=== PATIENT | female | born 1980 | race Caucasian/White ===

== ENCOUNTER 2020-02-21 08:46 | Outpatient (REF) | payer MEDICAID, SELFPAY ==
--- NOTE | 2020-02-21 09:00 | MR_ITS ---
EXAMINATION: MR BREAST WITHOUT AND WITH CONTRAST, BILATERAL CLINICAL INFORMATION: Family history of breast cancer. COMPARISON: Bilateral breast MRI 08/08/2014, bilateral screening mammogram 12/24/2019 TECHNIQUE: Imaging was performed with a dedicated breast coil. Prior to the administration of contrast, bilateral axial T1 and bilateral axial T2 weighted sequences were obtained. After the uneventful administration of?7.5 mL of Gadavist, dynamic contrast-enhanced VIBRANT series through the breasts in the axial plane were performed. Subtracted images were performed and reviewed. A delayed sagittal sequence through both breasts was acquired. Additionally, CAD post-processing, including maximum intensity projections, 3-D reconstructions and kinetic analysis, were performed an independent workstation and reviewed by the interpreting radiologist is a portion of this exam. FINDINGS: The patient's fibroglandular tissue demonstrates moderate background enhancement. LEFT BREAST: Moderate background enhancement and numerous enhancing foci are present. There are 2 new adjacent, enhancing nodules in the upper outer quadrant, 3 cm from the nipple (subtracted sequence images 57 and 59 of 124), each measuring 0.4-0.5 cm and demonstrating indeterminate enhancement kinetics. An additional indistinct, enhancing focus with indeterminate kinetics is present in the 11 o'clock position, 4 cm from the nipple, measuring 0.4 cm in size (subtracted sequence image 46 of 124). RIGHT BREAST: There is moderate background enhancement with multiple scattered enhancing foci. In the 11 o'clock position, anterior depth, 2 cm from the nipple, there is a round, indistinct enhancing nodule with indeterminate enhancement kinetics (type II enhancement curve) measuring 0.4 cm (subtracted sequence image 51 of 124), this is a new finding and is indeterminate in appearance. There is a stable presumed intramammary lymph node in the 9 o'clock position, 5 cm from the nipple, measuring 0.6 cm in size (subtracted sequence image 62 of 124). There is no suspicious internal mammary chain or axillary adenopathy. Limited views of the chest and abdomen are unremarkable. IMPRESSION: Bilateral indeterminate enhancing foci, as above. There is a single enhancing nodule on the right and 3 enhancing nodules on the left which require further characterization with core biopsy. ASSESSMENT: LEFT BREAST: BI-RADS 4, suspicious. RIGHT BREAST: BI-RADS 4, suspicious. RECOMMENDATIONS: Bilateral MR-guided core biopsy is recommended, it would be reasonable to attempt to sample all areas detailed above at a single appointment, left breast, upper outer quadrant 2 nodules and 11 o'clock position 1 nodule; right breast, 11 o'clock position, 1 nodule. Results were called to Belinda Velasquez MA on 02/25/20 at 4:20 pm.
== END 2020-02-21 08:47 | disposition home or self-care (01) ==
LOC: HO.MRI 08:46
PROVIDERS: Visit Provider Surgery
DX: R92.2 Inconclusive mammogram (principal); Z80.3 Family history of malignant neoplasm of breast
CPT/HCPCS: 77049

== ENCOUNTER 2020-02-28 10:30 | Outpatient (REF) | payer MEDICAID, SELFPAY ==
--- NOTE | 2020-02-28 | US_ITS ---
EXAMINATION: US DIAGNOSTIC ULTRASOUND BREAST, BILATERAL CLINICAL INFORMATION: Bilateral indeterminate lesions on MRI. COMPARISON: MRI examination of 02/21/2020. TECHNIQUE: Ultrasound of the breast is performed with real-time mata scale imaging and color Doppler. FINDINGS: LEFT BREAST: At the 3 o'clock position approximately 7 cm from the nipple there is a slightly irregularly marginated hypoechoic lesion which is taller than it is wide measuring approximately 5 x 2 x 4 mm in size without distal sound shadowing or enhancement. There is peripheral vascularity present. This was not definitely demonstrated on prior study. There is also noted to be a hypoechoic lesion which is well-circumscribed 2 o'clock position 5 cm from nipple measuring 4 x 3 x 4 mm in size without distal sound shadowing. No internal vascularity is seen. This too was not definitely identified on prior studies. At the 11 o'clock position 4 cm from nipple there is again noted to be a well-circumscribed hypoechoic lesion measuring 6 x 3 x 6 mm in size very similar in appearance to previous studies. RIGHT BREAST: About the 11 o'clock position 4 cm from the nipple there is a well-circumscribed hypoechoic lesion without distal sound shadowing measuring approximately 6 x 3 x 5 mm in size with peripheral vascularity which appears to correspond to a previously noted lesion that was marked as 12 o'clock, 2 cm from nipple on prior study of 02/19/2019. No new suspicious lesion is identified. Results are discussed with the patient at time of visit. Results were called to referring provider's office by patient navigator on 02/28/2020. US/US breast LT limited IMPRESSION: Two left breast lesions about the lateral aspect of the left breast correlating in size and location to the MRI finding. There is a stable lesion about the 11 o'clock region of the right breast. Recommend ultrasound-guided biopsy of the 2 lateral left breast lesions and if the 11 o'clock region on MRI is new, then attempt at biopsying the 11 o'clock lesion could be performed with ultrasound with an MRI performed later to ensure that the 3 lesions seen on MRI were the ones biopsied with ultrasound. About the 11 o'clock position of the right breast there is what appears to be a stable well-circumscribed density which may correspond to the MRI finding, however, if the MRI finding is new since previous studies, then would consider ultrasound-guided biopsy with MRI performed later to ensure that this was the correct lesion that was biopsied. If MRI findings do not correlate with the ultrasound biopsies, then MRI biopsy could be performed for those lesions. ASSESSMENT: BI-RADS 4: Suspicious RECOMMENDATION: Bilateral ultrasound breast biopsies as described above. This patient's information was entered into a reminder system with a target due date for their next mammogram.
--- NOTE | 2020-02-28 | US_ITS ---
EXAMINATION: US DIAGNOSTIC ULTRASOUND BREAST, BILATERAL CLINICAL INFORMATION: Bilateral indeterminate lesions on MRI. COMPARISON: MRI examination of 02/21/2020. TECHNIQUE: Ultrasound of the breast is performed with real-time mata scale imaging and color Doppler. FINDINGS: Left breast: At the 3 o'clock position approximately 7 cm from the nipple there is a slightly irregularly marginated hypoechoic lesion which is taller than it is wide measuring approximately 5 x 2 x 4 millimeters in size without distal sound shadowing or enhancement. There is peripheral vascularity present. This was not definitely demonstrated prior study. There is also noted to be a hypoechoic lesion which is well-circumscribed 2 o'clock position 5 centimeters from the nipple measuring 4 x 3 x 4 mm in size without distal sound shadowing. No internal vascularity is seen. This too was not definitely identified on prior studies. At the 11 o'clock position 4 cm from nipple there is again noted to be a well-circumscribed hypoechoic lesion measuring 6 x 3 x 6 mm in size very similar in appearance to previous studies. Right breast: About the11 o'clock position 4 cm from the nipple there is a well-circumscribed hypoechoic lesion without distal sound shadowing measuring approximately 6 x 3 x 5 mm in size with peripheral vascularity which appears to correspond to a previously noted lesion was marked as 12 o'clock, 2 cm from nipple on prior study of 02/19/2019. No new suspicious lesion is identified. Results are discussed with the patient at time of visit. Results Above results were called to referring phlebitis office by patient navigator on 02/28/2020. US/US breast RT limited IMPRESSION: Two left breast lesions about the lateral aspect of the left breast correlating in size and location to the MRI finding there is a stable lesion about the 11 o'clock region of the right breast. Recommend ultrasound-guided biopsy of the 2 lateral left breast lesions and if the 11 o'clock region on MRI is new then attempt at biopsying 11 o'clock lesion could be performed with ultrasound with an MRI performed later to ensure that the 3 lesions seen on MRI wasn't 1's biopsied with ultrasound. About the 11:00 position of the right breast there is what appears to be a stable well-circumscribed density which may correspond to the MRI finding however if the MRI findings is new since previous studies then would consider ultrasound-guided biopsy with MRI performed later to ensure that this was the correct lesion that was biopsied. If MRI findings do not correlate with the ultrasound biopsy is then MRI biopsy could be performed for those lesions. ASSESSMENT: BI-RADS 4: Suspicious RECOMMENDATION: Bilateral ultrasound breast biopsies as described above. This patient's information was entered into a reminder system with a target due date for their next mammogram.
== END 2020-02-28 10:31 | disposition home or self-care (01) ==
LOC: HO.MAMMO 10:30
PROVIDERS: PCP Internal Medicine; Visit Provider Surgery
DX: R92.8 Other abnormal and inconclusive findings on diagnostic imaging of breast (principal)
CPT/HCPCS: 76641; 76642

== ENCOUNTER 2020-03-04 08:04 | Outpatient (REF) | payer MEDICAID, SELFPAY ==
--- NOTE | 2020-03-04 | US_ITS ---
EXAMINATION: ULTRASOUND GUIDED CORE BIOPSY BREAST (THREE SITES), LEFT ULTRASOUND GUIDED CORE BIOPSY BREAST (ONE SITE), RIGHT POST PROCEDURE DIGITAL MAMMOGRAM, BILATERAL CLINICAL INFORMATION: 39-year-old with recent high risk screening breast MRI demonstrating 3 enhancing nodule left breast and one enhancing nodule right breast for tissue sampling. Recent bilateral second left ultrasound demonstrates bilateral finding likely corresponding to the MRI. Ultrasound-guided core sampling recommended. Personal history bilateral implants. Family history premenopausal breast cancer in sister. COMPARISON: Mammography 12/24/2019, bilateral breast MRI 02/21/2020, bilateral diagnostic breast ultrasound 02/28/2020. FINDINGS: Proper informed consent is obtained from the patient after discussion of the procedure, potential risks and complications, and alternatives. Patient was given an opportunity for questions. The patient appeared to understand. The patient consented to the procedure and signed the consent form. RIGHT BREAST: LOCATION: 11:00 to 12:00, 3 cm from nipple. GUIDANCE: Ultrasound-guided; aseptic technique. LESION: Hypoechoic nodule 6 x 6 x 3 mm. APPROACH: Lateral medial. ANESTHESIA: 7 mL 1% lidocaine. DERMATOTOMY: Single skin janice dermatotomy performed. NEEDLE: 14-gauge Achieve core biopsy device with 13.5-gauge co-axial guide needle. CORES: 5. CLIP: HydroMARK; shape: open coil. LEFT BREAST: SPECIMEN A: New anesthesia and biopsy supplies are used. LOCATION: 3:00 - 4:00, 6 cm from nipple. GUIDANCE: Ultrasound-guided; aseptic technique. LESION: Irregular hypoechoic nodule slightly taller than wide measuring 5 x 4 x 3 mm. APPROACH: Oblique lateral medial. ANESTHESIA: 5 mL 1% lidocaine. DERMATOTOMY: Single skin janice dermatotomy performed. NEEDLE: 14-gauge Achieve core biopsy device with 13.5-gauge co-axial guide needle. CORES: 5. CLIP: HydroMARK; shape: barrel. SPECIMEN B: New anesthesia and biopsy supplies are used. LOCATION: 2:00 to 3:00, 6 cm from nipple. GUIDANCE: Ultrasound-guided; aseptic technique. LESION: Hypoechoic nodule wider than tall 4 x 4 x 3 mm. APPROACH: Oblique lateral medial through same dermatotomy site. ANESTHESIA: 10 mL 1% lidocaine. DERMATOTOMY: The same skin janice dermatotomy site from specimen A lesion is used to access the lesion. NEEDLE: 14-gauge Achieve core biopsy device with 13.5-gauge co-axial guide needle. CORES: 4. CLIP: HydroMARK; shape: open coil. SPECIMEN C: New anesthesia and biopsy supplies are used. LOCATION: 11:00 2 cm from nipple. GUIDANCE: Ultrasound-guided; aseptic technique. LESION: Hypoechoic nodule 6 x 6 x 3 mm. APPROACH: Medial lateral. ANESTHESIA: 18 mL 1% lidocaine. DERMATOTOMY: Single skin janice dermatotomy performed. NEEDLE: 14-gauge Achieve core biopsy device with 13.5-gauge co-axial guide needle. CORES: 5. CLIP: HydroMARK; shape: butterfly. POST PROCEDURE DIGITAL MAMMOGRAM: The post biopsy mammogram is performed in separate room using separate digital mammography equipment from the biopsy procedure. Bilateral implant displaced CC, right implant displaced ML, and left implant displaced ML x2 projections are obtained. The breasts are heterogeneously dense, which may obscure small masses (breast composition category: c). The right clip marker is in position. The 3 left breast clip markers are in position. No gross hematoma. The patient tolerated the procedures well. No immediate complications. Home instructions reviewed with the patient. Final pathology results are pending. US/US breast ndl core bio ea add IMPRESSION: 1. Status post ultrasound-guided core biopsy right breast (1 site) and left breast (3 sites). 2. Clips placed at each location, shapes as detailed above. 3. Pathology pending. An addendum report will be issued.
== END 2020-03-04 08:05 | disposition home or self-care (01) ==
LOC: HO.MAMMO 08:04
PROVIDERS: Visit Provider Surgery
DX: N63.20 Unspecified lump in the left breast, unspecified quadrant (principal); N63.10 Unspecified lump in the right breast, unspecified quadrant; Z98.82 Breast implant status; Z80.3 Family history of malignant neoplasm of breast
CPT/HCPCS: 19083; 19084; 19286; 77066; 88305; 88341; 88342; A4648

== ENCOUNTER 2020-09-24 14:31 | Outpatient (REF) | payer MEDICAID, SELFPAY | END 2020-09-24 14:32 | disposition home or self-care (01) | LOC: HO.LAB 14:31 | PROVIDERS: Visit Provider Internal Medicine | DX: Z20.822 Contact with and (suspected) exposure to COVID-19 (principal) | CPT/HCPCS: C9803; U0003; U0005 ==

== ENCOUNTER → 2020-11-19 11:18 | Outpatient (BNVA) | payer MEDICAID, SELFPAY | PROVIDERS: PCP Internal Medicine; Visit Provider Advanced Practice Midwife ==

== ENCOUNTER 2020-12-05 10:02 | Outpatient (REF) | payer MEDICAID, SELFPAY ==
[2020-12-05 12:47] LABS: Syphilis Screen Nonreactive (Nonreactive)
[2020-12-08 08:05] LABS: HBc Num1 0.15 S/CO (0.00-0.79); Hepatitis B Core Antibody Nonreactive (Nonreactive); ~HepC Num1 3.11 S/CO (0.00-0.79); ~Hepatitis C Antibody Reactive (Nonreactive)
[2020-12-08 08:26] LABS: HIV AB/AG Nonreactive (Nonreactive); HIV Num 1 0.04 S/CO (0.00-0.99)
== END 2020-12-05 10:03 | disposition home or self-care (01) ==
LOC: HO.LAB 10:02
PROVIDERS: PCP Internal Medicine; Visit Provider Advanced Practice Midwife
DX: Z01.84 Encounter for antibody response examination (principal); Z11.4 Encounter for screening for human immunodeficiency virus [HIV]; Z11.59 Encounter for screening for other viral diseases; Z87.42 Personal history of other diseases of the female genital tract; Z80.3 Family history of malignant neoplasm of breast; Z20.2 Contact with and (suspected) exposure to infections with a predominantly sexual mode of transmission
CPT/HCPCS: 36415; 86704; 86780; 86803; 87389; 87491; 87591; 87624; 88142

== ENCOUNTER 2020-12-05 11:00 | Outpatient (REF) | payer MEDICAID, SELFPAY ==
[2020-12-06 11:37] LABS: CT PCR NOT DETECTED (Not Detect.); NG PCR NOT DETECTED (Not Detect.)
[2020-12-09 18:51] LABS: HPV mRNA E6/E7 rflx Not Detected (Not Detected)
== END 2020-12-05 11:01 | disposition home or self-care (01) ==
LOC: HO.LAB 11:00
PROVIDERS: Visit Provider Advanced Practice Midwife
DX: Z01.419 Encounter for gynecological examination (general) (routine) without abnormal findings (principal); Z11.3 Encounter for screening for infections with a predominantly sexual mode of transmission; Z11.51 Encounter for screening for human papillomavirus (HPV); Z87.42 Personal history of other diseases of the female genital tract
CPT/HCPCS: 87491; 87591; 87624; 88142

== ENCOUNTER 2020-12-30 14:57 | Outpatient (REF) | payer MEDICAID, SELFPAY ==
--- NOTE | ~2020-12-30 | MM_ITS ---
EXAMINATION: MM SCREENING DIGITAL BREAST TOMOSYNTHESIS, BILATERAL CLINICAL INFORMATION: Screening. Asymptomatic. 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 The lifetime risk of breast cancer based on the Tyrer-Cuzick Model is 16%. COMPARISON: Mammography: 03/04/2020, 12/24/2019, 12/19/2018 TECHNIQUE: Digital mammography is performed in craniocaudal and mediolateral oblique views along with computer-aided detection (CAD). Digital breast tomosynthesis is performed in implant-displaced craniocaudal and implant-displaced mediolateral oblique views along with computer-aided detection (CAD). Synthesized 2D images are generated from the tomosynthesis. FINDINGS: The breasts are extremely dense, which lowers the sensitivity of mammography (ACR BI-RADS breast composition Category d). There are no significant masses, abnormal calcifications, or other abnormalities. There are bilateral implants. The implant margins are smooth and similar to prior studies. The left breast has 3 biopsy clip markers and there is one clip marker on the right consistent with the history bilateral benign biopsies in 2020. Parenchymal pattern is similar to prior exam. There is no developing density or interval mass or abnormal calcifications. The axilla and skin contours are unremarkable. MM/MM tomosynthesis screen imp BI IMPRESSION: No mammographic evidence of malignancy. ASSESSMENT: BI-RADS 2: Benign RECOMMENDATION: Routine annual mammography screening. This patient's information was entered into a reminder system with a target due date for their next mammogram.
== END 2020-12-30 14:58 | disposition home or self-care (01) ==
LOC: HO.MAMMO 14:57
PROVIDERS: PCP Internal Medicine; Visit Provider Internal Medicine
DX: Z12.31 Encounter for screening mammogram for malignant neoplasm of breast (principal)
CPT/HCPCS: 77063; 77067

== ENCOUNTER 2021-03-02 10:26 | Outpatient (REF) | payer MEDICAID, SELFPAY ==
[2021-03-02 11:21] LABS: Alanine Aminotransferase 10 U/L (0-31); Albumin Level 4.7 g/dL (3.5-5.0); Alkaline Phosphatase 58 U/L (39-117); Anion Gap 11 (12-20); Aspartate Amino Transferase 12 U/L (5-31); Bilirubin Total 0.9 mg/dL (0.0-1.0); Blood Urea Nitrogen 13 mg/dL (9-16); Calcium 9.9 mg/dL (8.4-10.2); Carbon Dioxide 29 mmol/L (22-29); Chloride 105 mmol/L (96-108); Cholesterol 156 mg/dL; Estimated Glomerular Filt Rate > 60; Glucose Random 90 mg/dL (60-115); HDL Cholesterol 42 mg/dL; LDL Cholesterol Calculated 100 mg/dl; Potassium 4.2 mmol/L (3.3-5.1); Sodium 141 mmol/L (135-145); Total Protein 7.8 g/dL (6.5-8.0); Triglycerides 72 mg/dL
[2021-03-02 11:37] LABS: HIV AB/AG Nonreactive (Nonreactive); HIV Num 1 0.04 S/CO (0.00-0.99)
[2021-03-02 14:31] LABS: CT PCR DETECTED (Not Detect.); NG PCR NOT DETECTED (Not Detect.)
[2021-03-05 16:57] LABS: Treponema pallidum Ab FTA ABS Nonreactive (Nonreactive)
== END 2021-03-02 10:27 | disposition home or self-care (01) ==
LOC: HO.LAB 10:26
PROVIDERS: PCP Internal Medicine; Visit Provider Internal Medicine
DX: Z00.00 Encounter for general adult medical examination without abnormal findings (principal); Z13.31 Encounter for screening for depression; Z11.3 Encounter for screening for infections with a predominantly sexual mode of transmission; Z11.4 Encounter for screening for human immunodeficiency virus [HIV]; Z72.0 Tobacco use
CPT/HCPCS: 80053; 80061; 86780; 87389; 87491; 87591

== ENCOUNTER 2021-03-09 17:08 | Outpatient (REF) | payer MEDICAID, SELFPAY ==
[2021-03-10 03:54] LABS: CT PCR DETECTED (Not Detect.); NG PCR NOT DETECTED (Not Detect.)
== END 2021-03-09 17:09 | disposition home or self-care (01) ==
LOC: HO.LAB 17:08
PROVIDERS: PCP Internal Medicine; Visit Provider Internal Medicine
DX: A56.11 Chlamydial female pelvic inflammatory disease (principal)
CPT/HCPCS: 87491; 87591

== ENCOUNTER 2021-04-28 11:23 | Outpatient (REF) | payer MEDICAID, SELFPAY | END 2021-04-28 11:24 | disposition home or self-care (01) | LOC: HO.LAB 11:23 | PROVIDERS: Visit Provider Internal Medicine | DX: Z20.822 Contact with and (suspected) exposure to COVID-19 (principal) | CPT/HCPCS: C9803; U0003; U0005 ==

== ENCOUNTER → 2021-09-28 13:54 | Outpatient (BNVA) | payer SELFPAY | PROVIDERS: PCP Internal Medicine; Visit Provider Internal Medicine | DX: Z02.79 Encounter for issue of other medical certificate (principal) ==

== ENCOUNTER 2021-09-29 09:24 | Outpatient (REF) | payer MEDICAID, SELFPAY ==
[2021-09-29 10:40] LABS: Appearance Urine CLEAR; Color Urine YELLOW; Glucose Urine UA NEG (NEG); Leukocyte Esterase Urine NEG (NEG); Nitrite Urine NEG (NEG); Urine Blood 2+ (NEG); Urine Ketones NEG (NEG); Urine Protein NEG (NEG-TRACE)
[2021-09-29 10:57] LABS: Mucus Urine TRACE /LPF; Squamous Epithelial Cell Urine 1+ /LPF; WBC Urine 0 /HPF (0-4)
[2021-09-29 11:26] LABS: HIV AB/AG Nonreactive (Nonreactive); HIV Num 1 0.07 S/CO (0.00-0.99)
[2021-09-29 14:34] LABS: CT PCR NOT DETECTED (Not Detect.); NG PCR NOT DETECTED (Not Detect.)
[2021-09-30 06:42] LABS: Syphilis Screen Nonreactive (Nonreactive)
== END 2021-09-29 09:25 | disposition home or self-care (01) ==
LOC: HO.LAB 09:24
PROVIDERS: PCP Internal Medicine; Visit Provider Internal Medicine
DX: Z11.4 Encounter for screening for human immunodeficiency virus [HIV] (principal); Z11.3 Encounter for screening for infections with a predominantly sexual mode of transmission; R31.29 Other microscopic hematuria; Z72.0 Tobacco use
CPT/HCPCS: 81001; 86780; 87389; 87491; 87591

== ENCOUNTER 2021-11-16 15:54 | Outpatient (REF) | payer MEDICAID, SELFPAY ==
[2021-11-16 16:51] LABS: Urine Cytology See Pathology rpt
== END 2021-11-16 15:55 | disposition home or self-care (01) ==
LOC: HO.LAB 15:54
DX: R31.29 Other microscopic hematuria (principal)
CPT/HCPCS: 88112; 99202

== ENCOUNTER 2021-12-07 10:35 | Outpatient (REF) | payer MEDICAID, SELFPAY ==
[2021-12-07 12:38] LABS: HBc Num1 0.08 S/CO (0.00-0.79); HIV AB/AG Nonreactive (Nonreactive); HIV Num 1 0.08 S/CO (0.00-0.99); Hepatitis B Core Antibody Nonreactive (Nonreactive); ~HepC Num1 1.98 S/CO (0.00-0.79); ~Hepatitis C Antibody Reactive (Nonreactive)
[2021-12-07 12:39] LABS: Syphilis Screen Nonreactive (Nonreactive)
[2021-12-07 16:48] LABS: CT PCR NOT DETECTED (Not Detect.); NG PCR NOT DETECTED (Not Detect.)
[2021-12-10 14:32] LABS: HPV mRNA E6/E7 rflx Not Detected (Not Detected)
== END 2021-12-07 10:36 | disposition home or self-care (01) ==
LOC: HO.LAB 10:35
PROVIDERS: PCP Internal Medicine; Visit Provider Advanced Practice Midwife
DX: Z01.419 Encounter for gynecological examination (general) (routine) without abnormal findings (principal); Z11.51 Encounter for screening for human papillomavirus (HPV); Z11.4 Encounter for screening for human immunodeficiency virus [HIV]; Z20.2 Contact with and (suspected) exposure to infections with a predominantly sexual mode of transmission; Z87.42 Personal history of other diseases of the female genital tract
CPT/HCPCS: 36415; 86704; 86780; 86803; 87389; 87491; 87591; 87624; 88142

== ENCOUNTER 2021-12-16 10:17 | Outpatient (REF) | payer MEDICAID, SELFPAY ==
[2021-12-16 12:31] LABS: ~HepC Num1 2.49 S/CO (0.00-0.79); ~Hepatitis C Antibody Reactive (Nonreactive)
[2021-12-18 15:21] LABS: HCV Log PCR <1.18 NOT DETECTED Log IU/mL (NOT DETECTED); HepC Viral Load <15 NOT DETECTED IU/mL (NOT DETECTED)
== END 2021-12-16 10:18 | disposition home or self-care (01) ==
LOC: HO.LAB 10:17
PROVIDERS: PCP Internal Medicine; Visit Provider Internal Medicine
DX: B18.2 Chronic viral hepatitis C (principal); Z72.0 Tobacco use
CPT/HCPCS: 36415; 86803; 87522

== ENCOUNTER 2022-02-27 21:09 | Emergency (ER) | payer MEDICAID, SELFPAY ==
[2022-02-27 21:35] VITALS: BP 99/60; PULSE 75; RESP 16; TEMP 36.8; O2SAT 99; BMI 22.9
--- NOTE | 2022-02-28 00:07 | ED_ITS ---
HPI - Eye Problem General Chief complaint: Eye Problems Stated complaint: R eye swelling due to insect bite Time Seen by Provider: 02/27/22 22:50 Source: patient Mode of arrival: ambulatory Limitations: no limitations History of Present Illness HPI Narrative: Patient comes to the emergency room complaining of right-sided eye pain. Patient states that earlier today, she fell foreign body in her eye, rubbed her eye, then when she went to the mirror to take all, she saw something under her lower eyelid on the inside that looked like an ant. Patient is unsure if she got bit. Patient complaining of mild swelling in the sclera, local discomfort, no visual changes Related Data Home Medications Medication Instructions Recorded Confirmed ibuprofen 600 mg tablet 600 mg PO Q6H 12/07/21 Previous Rx's Medication Instructions Recorded norethindrone (contraceptive) 0.35 0.35 mg PO DAILY #28 tabs 12/07/21 mg tablet (Aarti) erythromycin 5 mg/gram (0.5 %) eye 0.5 inch ophthalmic (eye) TID #3.5 02/28/22 ointment grams Allergies Allergy/AdvReac Type Severity Reaction Status Date / Time No Known Allergies Allergy Verified 12/07/21 11:03 Review of Systems Review of Systems: Constitutional : No Weight loss, No Fever, No Chills, No Night Sweats, No Fatigue, No Malaise ENT/Mouth : No Hearing loss, No Ear Pain, No Nasal Congestion, No Sinus Pain, No Hoarseness, No sore throat, No Rhinorrhea, No Swallowing Difficulty Eyes: Complaining of right-sided scleras swelling, discomfort Cardiovascular : No Chest Pain, No SOB, No Dyspnea on Exertion, No Orthopnea, No Edema, No Palpitations Respiratory : No Cough, No Sputum, No Wheezing, No Smoke Exposure, No Dyspnea Gastrointestinal : No Nausea, No Vomiting, No Diarrhea, No Constipation, No abdominal Pain, No Hematochezia, No Melena Genitourinary : no irregular bleeding, No Dysuria, No Urinary Frequency, No Hematuria, No Urinary Incontinence, No Urgency, No Flank Pain, No Urinary Flow Changes, No Hesitancy Musculoskeletal : No joint pain, No Myalgias, No Joint Swelling Skin : No Skin Lesions, No rash Neuro : No Weakness, No Numbness, No Paresthesias, No Loss of Consciousness, No Dizziness, No Headache Psych : No Anxiety/Panic, No Depression, No SI/HI/AH/VH, No Social Issues, Heme/Lymph: No Bruising, No Bleeding,No Lymphadenopathy Endocrine : No Polyuria, No Polydipsia, No Temperature Intolerance [facility] Past Medical History Medical History Asthma Breast lump History of abnormal cervical Pap smear Hx of migraine headaches Microscopic hematuria Surgical History H/O breast augmentation History of loop electrical excision procedure (LEEP) Family History Family History Paternal Aunt Ovarian cancer Cervical cancer Father Esophageal cancer Sister History of breast cancer, Onset Age: 40 Social History Social History Alcohol intake: current Alcohol intake frequency: holidays/special occasions only Patient Tobacco Use Status: Current everyday Tobacco user Cigarettes Per Day: 6 Advance Directives: No Advance Directives Information Provided: No Sexual orientation: Straight/Heterosexual Physical Exam Vital Signs: Vital Signs: Last Vital Signs Temp 98.3 F 02/27/22 21:35 Pulse 75 02/27/22 21:35 Resp 16 02/27/22 21:35 BP 99/60 02/27/22 21:35 Pulse Ox 99 02/27/22 21:35 BMI result Body Mass Index 22.9 Const: Other: Appearance: Alert. Oriented X3. No acute distress. Eyes: Pupils equal, round and reactive to light. On fluorescein stain test there are no abrasions, there is 0.4 x 0.4 mm bump on the sclera, fluid filled, no leakage ENT: Pharynx normal. Neck: Normal inspection. Neck supple. No lymph nodes noted. No crepitus CVS: Normal heart rate and rhythm. Pulses normal. Normal S1 and S2 Respiratory: No respiratory distress. Breath sounds normal. No Wheezing. No rales Abdomen: Soft and nontender. No rigidity. No distention. Skin: Skin warm and dry. Normal skin color. Normal skin turgor. Extremities: No lower extremity edema. No Lacerations. No Rash Neuro: Oriented X 3. No motor deficit. No sensory deficit. Moving all extremities. No slurred speech. CN 2 through 12 grossly intact Psych: calm, cooperative, normal affect Course Course Course Narrative: It is possible that patient may have gotten bitten by an ant. Patient of no visual changes. Swelling likely decreased by itself, patient was given a prescription for erythromycin ointment, patient instructed to use warm compresses. I was informed by the patient's nurse that the patient left before getting any of her paperwork including the printed prescription that she requested. Discharge Plan Discharge Clinical Impression: Insect bite of eye region Patient Disposition: Home, Self-Care Instructions: Insect Bite or Sting (ED) Additional Instructions: Please follow-up with your primary care physician tomorrow. If you have any worsening or new symptoms, please return to the emergency room or call 911 Prescriptions: New erythromycin 5 mg/gram (0.5 %) ointment 0.5 inch ophthalmic (eye) TID Qty: 3.5 0RF No Action norethindrone (contraceptive) [Aarti] 0.35 mg tablet 0.35 mg PO DAILY Qty: 28 11RF ibuprofen 600 mg tablet 600 mg PO Q6H
[2022-02-28] MEDS: Fluorescein Sodium STRIP 1 STRIP EYE-RIGHT (00:26)
[2022-02-28] MEDS: Tetracaine HCl/PF 0.5% Oph Sol 4 ML DROPS 3 DROP EYE-RIGHT (00:27)
== END 2022-02-28 00:51 | disposition home or self-care (01) ==
PROVIDERS: Emergency Provider Emergency Medicine; PCP Internal Medicine
DX: S00.261A Insect bite (nonvenomous) of right eyelid and periocular area, initial encounter (principal); W57.XXXA Bitten or stung by nonvenomous insect and other nonvenomous arthropods, initial encounter; Y93.9 Activity, unspecified; Y92.9 Unspecified place or not applicable; Y99.9 Unspecified external cause status
CPT/HCPCS: 99282; 99283

== ENCOUNTER 2022-03-02 10:13 | Outpatient (REF) | payer MEDICAID, SELFPAY ==
[2022-03-02 10:37] LABS: MANUAL DIFF FLAG NO
[2022-03-02 11:42] LABS: Basophils Absolute Auto 0.1 X10*3/uL (0.0-0.2); Basophils Percent Auto 1.2 % (0-2); Eosinophils Absolute Auto 0.1 X10*3/uL (0.0-0.4); Eosinophils Percent Auto 1.6 % (0-4); Hematocrit 40.6 % (37.0-47.0); Imm Gran Abs Auto 0.03 X10*3/uL (0.00-0.03); Imm Gran Pct Auto 0.4 % (0.0-0.4); Lymphocytes Absolute Auto 2.5 X10*3/uL (1.2-4.9); Lymphocytes Percent Auto 36.5 % (20-40); Mean Corpuscular HGB Conc 34.5 g/dl (31.0-35.0); Mean Corpuscular Hemoglobin 31.6 pg (27.0-33.0); Mean Corpuscular Volume 91.6 fL (80.0-98.0); Mean Platelet Volume 10.1 fL (9.4-12.3); Monocytes Absolute Auto 0.5 X10*3/uL (0.1-1.2); Monocytes Percent Auto 7.5 % (2-11); Neutrophils Absolute Auto 3.6 x10*3/uL (2.0-8.3); Neutrophils Percent Auto 52.8 % (45-73); Platelet Count 298 X10*3/uL (160-400); Red Blood Count 4.43 X10*6/uL (4.20-5.50); Red Cell Distribution Width 13.5 % (11.0-16.0); White Blood Count 6.8 X10*3/uL (4.8-10.8)
[2022-03-02 12:25] LABS: HIV AB/AG Nonreactive (Nonreactive); HIV Num 1 0.07 S/CO (0.00-0.99)
[2022-03-02 12:42] LABS: Alanine Aminotransferase 12 U/L (0-31); Albumin Level 4.3 g/dL (3.5-5.0); Alkaline Phosphatase 47 U/L (39-117); Anion Gap 14 (12-20); Aspartate Amino Transferase 14 U/L (5-31); Bilirubin Total 1.3 mg/dL (0.0-1.0); Blood Urea Nitrogen 10 mg/dL (9-16); Calcium 9.5 mg/dL (8.4-10.2); Carbon Dioxide 24 mmol/L (22-29); Chloride 105 mmol/L (96-108); Cholesterol 168 mg/dL; Estimated Glomerular Filt Rate > 60; Glucose Random 68 mg/dL (60-115); HDL Cholesterol 46 mg/dL; LDL Cholesterol Calculated 108 mg/dl; Potassium 4.4 mmol/L (3.3-5.1); Sodium 139 mmol/L (135-145); Total Protein 7.2 g/dL (6.5-8.0); Triglycerides 72 mg/dL
[2022-03-02 16:09] LABS: CT PCR NOT DETECTED (Not Detect.); NG PCR NOT DETECTED (Not Detect.)
[2022-03-04 14:32] LABS: TS Negative Control Passed; TS Panel A 0; TS Panel B 0; TS Positive Control Passed; TSpotTB Negative (Negative)
[2022-03-05 18:47] LABS: Treponema pallidum Ab FTA ABS Nonreactive (Nonreactive)
== END 2022-03-02 10:14 | disposition home or self-care (01) ==
LOC: HO.LAB 10:13
PROVIDERS: PCP Internal Medicine; Visit Provider Internal Medicine
DX: Z00.00 Encounter for general adult medical examination without abnormal findings (principal); Z11.1 Encounter for screening for respiratory tuberculosis; Z11.3 Encounter for screening for infections with a predominantly sexual mode of transmission; Z13.31 Encounter for screening for depression; Z72.0 Tobacco use
CPT/HCPCS: 80053; 80061; 85025; 86481; 86780; 87389; 87491; 87591

== ENCOUNTER 2022-08-03 08:35 | Emergency (ER) | payer MEDICAID, SELFPAY ==
--- NOTE | ~2022-08-03 | XR_ITS ---
EXAMINATION: X-ray left ankle X-ray left foot CLINICAL INFORMATION: Swelling, pain. COMPARISON: None. TECHNIQUE: 2 views of the left ankle 3 views of the left foot. FINDINGS: Left ankle. Osseous structures appear intact. No fractures or dislocations. Mild soft tissue swelling. Left foot. There are lucencies of the head of the second proximal phalanx with loss of the PIP joint space. There is also lucency and cortical loss of the distal portion of the second middle phalanx. Soft tissue swelling is present.. XR/XR ankle LT min 3V IMPRESSION: No osseous abnormality of the left ankle. Findings suggestive of an infectious/inflammatory process of the second phalanges of the left foot as above.
--- NOTE | ~2022-08-03 | XR_ITS ---
EXAMINATION: X-ray left ankle X-ray left foot CLINICAL INFORMATION: Swelling, pain. COMPARISON: None. TECHNIQUE: 2 views of the left ankle 3 views of the left foot. FINDINGS: Left ankle. Osseous structures appear intact. No fractures or dislocations. Mild soft tissue swelling. Left foot. There are lucencies of the head of the second proximal phalanx with loss of the PIP joint space. There is also lucency and cortical loss of the distal portion of the second middle phalanx. Soft tissue swelling is present.. XR/XR foot LT min 3V IMPRESSION: No osseous abnormality of the left ankle. Findings suggestive of an infectious/inflammatory process of the second phalanges of the left foot as above.
[2022-08-03 08:43] VITALS: BP 106/69; PULSE 81; RESP 18; TEMP 36.6; O2SAT 98; BMI 23.3
--- NOTE | 2022-08-03 10:02 | ED_ITS ---
HPI - Extremity Injury (Lower) General Chief Complaint: Extremity Injury, Lower Stated Complaint: L ankle inj Time Seen by Provider: 08/03/22 09:55 Source: patient and family Mode of arrival: wheelchair Limitations: no limitations History of Present Illness HPI Narrative: 42-year-old female here with left ankle and foot pain after an inversion injury which occurred [place]. No associated weakness, numbness or tingling of extremity. Patient now has pain with weight- bearing Related Data Home Medications Medication Instructions Recorded Confirmed ibuprofen 600 mg tablet 600 mg PO Q6H 12/07/21 Previous Rx's Medication Instructions Recorded norethindrone (contraceptive) 0.35 0.35 mg PO DAILY #28 tabs 12/07/21 mg tablet (Aarti) erythromycin 5 mg/gram (0.5 %) eye 0.5 inch ophthalmic (eye) TID #3.5 02/28/22 ointment grams Allergies Allergy/AdvReac Type Severity Reaction Status Date / Time No Known Allergies Allergy Verified 08/03/22 08:46 Review of Systems Review of Systems: Yes all other systems are reviewed and are negative Constitutional: Constitutional: Reports no additional constitutional complaints, Denies body ache(s), Denies chills, Denies fever(s), Denies headache(s) and Denies weakness Eyes: Eyes: Reports no additional eye complaints and Denies change in vision ENT: Reports system reviewed and no additional complaints, except as documented, Denies dizziness, Denies headache(s), Denies nasal congestion, Denies nasal discharge and Denies neck pain Cardiovascular: Cardiovascular: Reports no additional cardiovascular complaints, Denies chest pain, Denies leg edema and Denies dyspnea Respiratory: Respiratory: Reports no additional respiratory complaints, Denies cough and Denies dyspnea Gastrointestinal: Gastrointestinal: Reports no additional gastrointestinal complaints, Denies abdominal pain, Denies diarrhea, Denies nausea and Denies vomiting Genitourinary: Genitourinary: Reports no additional female genitourinary complaints and Denies urinary incontinence Musculoskeletal: Musculoskeletal: Reports no additional musculoskeletal complaints, Denies back pain, Reports arthralgias, Reports joint swelling, Denies neck pain, Denies numbness and Denies tingling Integumentary/Breasts: Skin/Breast: Reports system reviewed and no additional complaints, except as docu and Denies rash Neurologic: Reports system reviewed and no additional complaints, except as documented, Denies Abnormal speech present, Denies dizziness, Denies head ache(s), Denies numbness, Denies tingling and Denies weakness PMFSH Past Medical History Attestation statement: The following information was validated with the patient. Source: old records reviewed and nursing notes reviewed Medical History Asthma Breast lump History of abnormal cervical Pap smear Hx of migraine headaches Microscopic hematuria Surgical History H/O breast augmentation History of loop electrical excision procedure (LEEP) Family History Family History Paternal Aunt Ovarian cancer Cervical cancer Father Esophageal cancer Sister History of breast cancer, Onset Age: 40 Social History Social History Alcohol intake: current Alcohol intake frequency: holidays/special occasions only Patient Tobacco Use Status: Current everyday Tobacco user Cigarettes Per Day: 6 Advance Directives: No Advance Directives Information Provided: Yes Sexual orientation: Straight/Heterosexual Physical Exam Vital Signs: Vital Signs: Last Vital Signs Temp 97.9 F 08/03/22 08:43 Pulse 81 08/03/22 08:43 Resp 18 08/03/22 08:43 BP 106/69 08/03/22 08:43 Pulse Ox 98 08/03/22 08:43 O2 Del Method Room Air 08/03/22 08:43 BMI result Body Mass Index 23.3 Const: General: cooperative, healthy appearing, comfortable and no acute distress Orientation/consciousness: patient oriented x3 Limitations: no limitations HEENT: Head: Yes normal to inspection Ears: hearing grossly normal bilaterally General nose exam: Normal external nose present Face and sinus: Yes normal facial exam Mouth: Normal oral and palatal mucosa present Throat: Yes posterior oropharynx normal Eyes: General: appearance normal, both eyes and all related structures Pupils: Equal, round and reactive pupils present Neck: Neck: Yes normal visual inspection Chest: Chest palpation & inspection: normal inspection of the chest Resp: Effort & Inspection: normal respiratory effort Auscultation: clear to auscultation bilaterally Cardio: Rate: regular rate Rhythm: regular rhythm Peripheral pulses: Peripheral pulses 2+ throughout GI: Inspection: Yes normal to inspection Palpation (GI): Soft to palpation and nontender Auscultation: normal bowel sounds Back/Spine/Pelvis: Thoracic/Lumbar Spine: thoracic and lumbar spine normal to inspection Skin: General skin exam: no rashes or lesions noted Neuro: General: patient oriented x3, no focal motor deficits and normal sensation to monofilament Cranial nerves: Yes Equal, round and reactive pupils present Cognition (Neuro): normal cognition Speech: No Abnormal speech present Gait exam (Neuro): Normal gait present Motor exam (neuro): 5/5 motor strength present throughout Extrem: Other: There is swelling, ecchymosis, tenderness over the left lateral ankle and base of the 5th metatarsal. No tenderness on palpation over the medial or posterior ankle. Negative Ly test. Palpable DP and PT pulses. Sensation is normal General: Yes normal to inspection Course Course Course Narrative: X-ray show no acute fracture. Likely sprain. Patient placed in [place] wrap and given crutches for home. Reviewed rice. Reviewed worrisome signs and symptoms of when to return to the emergency room. Comfortable plan for discharge home. Medical Decision Making Medical Decision Making [facility] Narrative: 42-year-old female here with left ankle and foot pain after an inversion injury which occurred yesterday Will check x-rays Differential Diagnosis Differential Diagnoses: The differential diagnosis associated with the presentation includes Ankle sprain, fracture Independent Interpretation I performed an independent interpretation of an: Plain X-Ray Interpretation: I independently reviewed the x-ray and agree with the radiologist report- although I see no signs of infectious or inflammatory process-patient no history of redness/swelling/warmth or injury prior to this. No fevers, chills Radiology Impression Discussion of test interpretation with radiology: I have reviewed the radiologist's reading. Radiologist Impression: [address] [address] XRay Report Signed Patient: Martha Feliciano MR#: [id number] : 1980 Acct:[id number] Age/Sex: 42 / F ADM Date: 08/03/22 Loc: .ED Attending Dr: Ordering Physician: Myrtle Camacho MD Date of Service: 08/03/22 Procedure(s): XR ankle LT min 3V Accession Number(s): [id number] cc: Myrtle Camacho MD~ EXAMINATION: X-ray left ankle X-ray left foot CLINICAL INFORMATION: Swelling, pain. COMPARISON: None. TECHNIQUE: 2 views of the left ankle 3 views of the left foot. FINDINGS: Left ankle. Osseous structures appear intact. No fractures or dislocations. Mild soft tissue swelling. Left foot. There are lucencies of the head of the second proximal phalanx with loss of the PIP joint space. There is also lucency and cortical loss of the distal portion of the second middle phalanx. Soft tissue swelling is present.. XR/XR ankle LT min 3V IMPRESSION: No osseous abnormality of the left ankle. ? Findings suggestive of an infectious/inflammatory process of the second phalanges of the left foot as above. Discharge Plan Discharge Clinical Impression: Ankle sprain and strain Patient Disposition: Home, Self-Care Instructions: Ankle Sprain (DC) Additional Instructions: Ice, elevation Motrin or Tylenol for pain as needed Use the [place] wrap and crutches with non weight-bearing for the next few days Prescriptions: No Action erythromycin 5 mg/gram (0.5 %) ointment 0.5 inch ophthalmic (eye) TID Qty: 3.5 0RF norethindrone (contraceptive) [Arati] 0.35 mg tablet 0.35 mg PO DAILY Qty: 28 11RF ibuprofen 600 mg tablet 600 mg PO Q6H Stand Alone Forms: Work/School Release Interventions: ED Discharge Assessment Last Done: 08/03/22 10:16 Discharge Date/Time: 08/03/22 10:52
== END 2022-08-03 10:52 | disposition home or self-care (01) ==
PROVIDERS: Emergency Provider Emergency Medicine; PCP Internal Medicine
DX: S93.402A Sprain of unspecified ligament of left ankle, initial encounter (principal); S96.912A Strain of unspecified muscle and tendon at ankle and foot level, left foot, initial encounter; X50.1XXA Overexertion from prolonged static or awkward postures, initial encounter; F17.210 Nicotine dependence, cigarettes, uncomplicated; Y93.44 Activity, trampolining; Y92.39 Other specified sports and athletic area as the place of occurrence of the external cause; Y99.9 Unspecified external cause status
CPT/HCPCS: 73610; 73630; 99282; 99283

== ENCOUNTER 2022-12-24 08:14 | Outpatient (REF) | payer MEDICAID, SELFPAY | END 2022-12-24 08:15 | disposition home or self-care (01) | LOC: HO.LNP 08:14 | PROVIDERS: PCP Internal Medicine; Visit Provider Advanced Practice Midwife | DX: Z13.89 Encounter for screening for other disorder (principal) | CPT/HCPCS: 99396 ==

== ENCOUNTER 2022-12-24 08:14 | Outpatient (AMB) | payer MEDICAID, SELFPAY ==
--- NOTE | 2022-12-24 08:16 | MHC.OFFVIS ---
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 Scribed for SHORTY Bruno by Yuliya Pete medical equipment repair technician, on 12/24/2022 at 8:40 am EST. Office Services Representative Required: No Information Interpreted: non-clinical & clinical Plating Equipment Tender: Plating Equipment Tender Present (Dede Sanders OSEASJignesh) Accompanied by: Self / Same As Patient Allergies No Known Allergies Allergy (Verified 12/24/22 08:29) Is last menstrual period known: Yes Last menstrual period: 12/13/22 HPI HPI Comments History of Present Illness Details She is a premenopausal woman presenting for annual exam. She admits to eating healthy and tries to stay active with exercise. Admits to premenstrual symptoms such as back aches and pelvic cramping, she stops taking BC around expected menses date so she can still have a menses and allowing her self to ovulate. Uses Aarti for BC and cycles this as to give herself a bleed as she feels this is needed. Currently not sexually active for the last 3 months with her ex. STD screening and blood work offered; she accepts. Denies vaginal itching and irritation. Denies family hx of breast, colon and ovarian cancer. Last pap smear 12/08/21; CIN1 2019 Last mammogram 12/30/20. She reports new barbell piercings and desire to not have a mammogram until the healing process is over at a years length of time. Admit to tobacco use, but denies any other contraindications to control such as: migraines with aura, history of DVT or pulmonary emboli, high blood pressure, liver disease, thrombolic disorders, Lupus, or +MURIEL. She admits she is not ready to quit tobacco use at this time. [facility] Medical History Asthma Breast lump History of abnormal cervical Pap smear Hx of migraine headaches Microscopic hematuria Potential exposure to STD Smoker Surgical History H/O breast augmentation History of loop electrical excision procedure (LEEP) Family History Paternal Aunt Ovarian cancer Cervical cancer Father Esophageal cancer Sister History of breast cancer, Onset Age: 40 Social History Household Members: Children Housing: Apartment Alcohol intake: current Alcohol intake frequency: holidays/special occasions only Patient Tobacco Use Status: Current everyday Tobacco user Cigarettes Per Day: 4 Years Smoked: 15 Current occupational status: employed 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 Sexual orientation: Straight/Heterosexual Gender identity: Female Female Reproductive History Menstrual Age of Menarche: 17 Duration of menses: 3-5 days Date of last menstrual period: 12/13/22 control method: pills Total pregnancies: 4 Full term: 3 Number of Living Children: 3 Ab spontaneous: 1 Date of last pap smear: 12/08/21 Date of Mammogram: 12/30/20 Physical Exam Vital Signs: Last Vital Signs BP 90/60 12/24/22 08:17 BMI result Body Mass Index 24.0 Const General: cooperative, healthy appearing, no acute distress, well developed and alert Orientation/consciousness: patient oriented x3 HEENT Head: Yes normal to inspection Eyes General: appearance normal, both eyes and all related structures Neck Neck: Yes normal visual inspection Thyroid: Thyroid normal Chest Other: bilateral breast implant Chest palpation & inspection: normal inspection of the chest Breast/axilla inspection: normal inspection of the breasts (no puckering, dimpling, peau de orange, retraction, discharge, masses) Breast/axilla palpation: normal palpation of the breasts Resp Effort & Inspection: normal respiratory effort GI Inspection: Yes normal to inspection Palpation (GI): Soft to palpation (to palpation) Rectal Exam - Female: deferred General: Yes bladder normal to inspection External Female Exam: normal external appearance and normal appearance of the urethra Speculum Exam - Vagina: normal appearance of the vagina, normal palpation and normal vaginal discharge Speculum Exam - Cervix: normal appearance of the cervix and normal palpation Bimanual exam- vagina & uterus: normal palpation and normal palpation Bimanual Exam- Adnexa, other: normal adnexae and no masses Skin General skin exam: no rashes or lesions noted Neuro General: patient oriented x3 Cognition (Neuro): normal cognition Extrem General: Yes normal to inspection Psych Attitude: cooperative Thought process: Normal thought process present Assessment & Plan Assessment & Plan (1) Encounter for well woman exam: Code(s): Z01.419 - Encounter for gynecological examination (general) (routine) without abnormal findings Plan: Discussed: Current recommendations for pap smears per ASCCP guidelines Breast awareness and periodic self breast exams. Mammogram ordered, advised importance of routine sreenings and to obtain this as soon as possible. Maintaining a healthy lifestyle including a well balanced diet and routine exercise. All of her questions and concerns were addressed to the best of my ability. RTO in one year for AG. (2) Contraceptive surveillance: Code(s): Z30.40 - Encounter for surveillance of contraceptives, unspecified Plan: Reviewed use, side effects and warning of OCP, including ACHES. Informed to use BC as instructed to prevent . Recommended she take pill at same time every day with food to prevent stomach upset. This pill is not intended to stop start, it is continuous dosing. Alternative options for progeterone only products are available. Cyclic bleeding verses natural menstrual bleeding, shedding of lining and explanation of this discussed at length. How progesterone only pills vary from SUDEEP products. She was instructed to go to ER if she develops loss of vision, severe headache that does not resolve, chest pain, difficulty breathing, abdominal pain, or pain or tenderness in extremity. Risks of any undiagnosed breast cancers that can grow aggressively with hormones. SBE, mammogram advised. Call the office with any concerns. She was also counseled on smoking and risks with OCP?s, encouraged to quit tobacco use for overall risks on her health. (3) Potential exposure to STD: Code(s): Z20.2 - Contact with and (suspected) exposure to infections with a predominantly sexual mode of transmission Plan: BV testing and GC/CT panel today. STD blood work ordered. Await results and treat accordingly. Encouraged to use condoms for STD prevention. (4) Smoker: Code(s): F17.200 - Nicotine dependence, unspecified, uncomplicated Plan: Encourage to lower tobacco intake then quit. Orders: Orders Hepatitis B Core Antibody Today Z20.2 - Contact with and (suspected) exposure to infections with a predominantly sexual mode of transmission Hepatitis C Antibody Today Z20.2 - Contact with and (suspected) exposure to infections with a predominantly sexual mode of transmission HIV Ab/Ag Today Z20.2 - Contact with and (suspected) exposure to infections with a predominantly sexual mode of transmission Syphilis Screen Today Z20.2 - Contact with and (suspected) exposure to infections with a predominantly sexual mode of transmission MM tomosynthesis screen imp BI Today Z12.31 - Encounter for screening mammogram for malignant neoplasm of breast Bacterial Vaginosis Panel Today Z20.2 - Contact with and (suspected) exposure to infections with a predominantly sexual mode of transmission CT NG by PCR Today Z20.2 - Contact with and (suspected) exposure to infections with a predominantly sexual mode of transmission Medications: Refilled norethindrone (contraceptive) (Aarti) 0.35 mg PO DAILY 84 tabs 4RF Coding Level of Care Code Est Pt Prev Care 40-64y(47676) Diagnoses Encounter for well woman exam Z01.419 Contraceptive surveillance Z30.40 Potential exposure to STD Z20.2 Smoker F17.200
[2022-12-24 08:17] VITALS: BP 90/60; BMI 24.0
== END 2022-12-24 10:29 | disposition home or self-care (01) ==
LOC: HO.HWS 08:14
PROVIDERS: PCP Internal Medicine; Visit Provider Advanced Practice Midwife
DX: Z01.419 Encounter for gynecological examination (general) (routine) without abnormal findings (principal); Z30.40 Encounter for surveillance of contraceptives, unspecified; Z20.2 Contact with and (suspected) exposure to infections with a predominantly sexual mode of transmission; F17.200 Nicotine dependence, unspecified, uncomplicated
CPT/HCPCS: 99396

== ENCOUNTER 2022-12-24 09:00 | Outpatient (REF) | payer MEDICAID, SELFPAY ==
[2022-12-24 10:51] LABS: HBc Num1 0.13 S/CO (0.00-0.79); HIV AB/AG Nonreactive (Nonreactive); HIV Num 1 0.05 S/CO (0.00-0.99); Hepatitis B Core Antibody Nonreactive (Nonreactive); Syphilis Screen Nonreactive (Nonreactive); ~HepC Num1 1.94 S/CO (0.00-0.79); ~Hepatitis C Antibody Reactive (Nonreactive)
[2022-12-25 04:02] LABS: CT PCR NOT DETECTED (Not Detect.); NG PCR NOT DETECTED (Not Detect.)
[2022-12-25 11:47] LABS: BV Int Neg Control Negative (Negative); BV Int Pos Control Positive (Positive)
== END 2022-12-24 09:01 | disposition home or self-care (01) ==
LOC: HO.LAB 09:00
PROVIDERS: PCP Internal Medicine; Visit Provider Advanced Practice Midwife
DX: Z11.4 Encounter for screening for human immunodeficiency virus [HIV] (principal); Z20.2 Contact with and (suspected) exposure to infections with a predominantly sexual mode of transmission
CPT/HCPCS: 0353U; 86704; 86780; 86803; 87389; 87480; 87510; 87660

== ENCOUNTER 2023-06-15 12:25 | Outpatient (REF) | payer MEDICAID, SELFPAY ==
[2023-06-15 13:31] LABS: Alanine Aminotransferase 26 U/L (0-31); Albumin Level 4.3 g/dL (3.5-5.0); Alkaline Phosphatase 64 U/L (39-117); Anion Gap 10 (12-20); Aspartate Amino Transferase 17 U/L (5-31); Bilirubin Total 0.8 mg/dL (0.0-1.0); Blood Urea Nitrogen 12 mg/dL (9-16); Calcium 9.5 mg/dL (8.4-10.2); Carbon Dioxide 27 mmol/L (22-29); Chloride 106 mmol/L (96-108); Cholesterol 169 mg/dL (<200); Estimated Glomerular Filt Rate > 60; Glucose Random 91 mg/dL (60-115); HDL Cholesterol 45 mg/dL (>40); LDL Cholesterol Calculated 108 mg/dL (<100); Potassium 3.7 mmol/L (3.3-5.1); Sodium 139 mmol/L (135-145); Total Protein 7.7 g/dL (6.5-8.0); Triglycerides 82 mg/dL (<150)
[2023-06-15 14:55] LABS: CT PCR NOT DETECTED (Not Detect.); NG PCR NOT DETECTED (Not Detect.)
[2023-06-16 07:52] LABS: HIV AB/AG Nonreactive (Nonreactive); HIV Num 1 0.05 S/CO (0.00-0.99)
== END 2023-06-15 12:26 | disposition home or self-care (01) ==
LOC: HO.LAB 12:25
PROVIDERS: PCP Internal Medicine; Visit Provider Internal Medicine
DX: Z00.00 Encounter for general adult medical examination without abnormal findings (principal); Z11.3 Encounter for screening for infections with a predominantly sexual mode of transmission; Z13.31 Encounter for screening for depression; Z72.0 Tobacco use
CPT/HCPCS: 0353U; 80053; 80061; 87389

== ENCOUNTER → 2023-08-31 12:34 | Outpatient (BNVA) | payer SELFPAY | PROVIDERS: PCP Internal Medicine; Visit Provider Physician Assistant | DX: Z02.79 Encounter for issue of other medical certificate (principal) ==

== ENCOUNTER 2023-09-09 10:04 | Outpatient (REF) | payer OTHER, SELFPAY ==
--- NOTE | ~2023-09-09 | MM_ITS ---
EXAMINATION: MM SCREENING DIGITAL BREAST TOMOSYNTHESIS, BILATERAL CLINICAL INFORMATION: Screening. Asymptomatic. COMPARISON: Mammography: This study is compared with prior mammograms dating back to 2019. TECHNIQUE: Digital mammography is performed in craniocaudal and mediolateral oblique views along with computer-aided detection (CAD). Digital breast tomosynthesis is performed in implant-displaced craniocaudal and implant-displaced mediolateral oblique views along with computer-aided detection (CAD). Synthesized 2D images are generated from the tomosynthesis. FINDINGS: The breasts are heterogeneously dense, which may obscure small masses (ACR BI-RADS breast composition Category c). The patient has bilateral nipple rings. There are bilateral, retropectoral, mammographically intact silicone breast implants. There are tissue markers in each breast from prior benign percutaneous biopsies. There are a few, benign calcifications in each breast. There are no significant masses, abnormal calcifications, or other abnormalities. MM/MM tomosynthesis screen imp BI IMPRESSION: There are no significant changes from prior study. ASSESSMENT: BI-RADS BI-RADS 2 - Benign Findings RECOMMENDATION: Routine annual mammography screening. 1 year F/U This patient's information was entered into a reminder system with a target due date for their next mammogram.
== END 2023-09-09 10:05 | disposition home or self-care (01) ==
LOC: HO.MAMMO 10:04
PROVIDERS: PCP Internal Medicine; Visit Provider Advanced Practice Midwife
DX: Z12.31 Encounter for screening mammogram for malignant neoplasm of breast (principal)
CPT/HCPCS: 77063; 77067

== ENCOUNTER → 2023-09-09 10:15 | Outpatient (BNV) | payer OTHER, SELFPAY | PROVIDERS: PCP Internal Medicine; Visit Provider Radiology Diagnostic Radiology | DX: Z12.31 Encounter for screening mammogram for malignant neoplasm of breast (principal) | CPT/HCPCS: 77063; 77067 ==

== ENCOUNTER 2024-01-30 14:42 | Outpatient (REF) | payer OTHER, SELFPAY ==
[2024-01-31 11:35] LABS: Bacterial Vaginosis PCR NEGATIVE (Negative); Candida Group PCR NOT DETECTED (Not Detect); Candida glab krusei PCR NOT DETECTED (Not Detect); Trichomonas vaginalis PCR NOT DETECTED (Not Detect)
[2024-01-31 12:04] LABS: CT PCR NOT DETECTED (Not Detect.); NG PCR NOT DETECTED (Not Detect.)
== END 2024-01-30 14:43 | disposition home or self-care (01) ==
LOC: HO.LAB 14:42
PROVIDERS: PCP Internal Medicine; Visit Provider Advanced Practice Midwife
DX: N89.8 Other specified noninflammatory disorders of vagina (principal); Z20.2 Contact with and (suspected) exposure to infections with a predominantly sexual mode of transmission; F17.200 Nicotine dependence, unspecified, uncomplicated; Z86.69 Personal history of other diseases of the nervous system and sense organs; Z98.82 Breast implant status; Z87.42 Personal history of other diseases of the female genital tract
CPT/HCPCS: 0352U; 87491; 87591; 99396

== ENCOUNTER 2024-01-30 14:42 | Outpatient (AMB) | payer OTHER, SELFPAY ==
[2024-01-30 15:01] VITALS: BP 100/60; BMI 26.0
--- NOTE | 2024-01-30 15:01 | MHC.OFFVIS ---
Vital Signs 01/30/24 15:01 Height 5 ft 5 in Weight 156 lb BMI 26.0 BP 100/60 Intake Visit Reasons: [employer]ING [employer]ORER annual exam Physician Obstetrician Required: No Information Interpreted: clinical only Mail List Processor: Mail List Processor Present Allergies No Known Allergies Allergy (Verified 01/30/24 15:02) Medication List - Last Reconciled 01/30/24 by Tania Hernandez CNM ibuprofen 600 mg PO Q6H norethindrone (contraceptive) (Aarti) 0.35 mg PO DAILY Is last menstrual period known: Yes Last menstrual period: 01/22/24 Do you need a note to return to daycare/school/sports/work: No HPI HPI 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 She feels bloated and she does not like that. Reviewed with her calendar she is calling ovulation the time that the zeenat would tell her she would be ovulating if she were not on OCPs. Reviewed that if she is not missing pills during the cycle she would not be ovulating at all theoretically. She says she has been doing this for years and the longest she is off the pills in order to get her period is about 4 or 5 days. Discussed that this isn't making too much sense but so long as she is consistent with it and skipping the pills at the end of the pack as if they were placebo pills that that may work for her in order to have a withdrawal bleed AK a ?menses? Patient is a smoker she says she smokes a little bit of a cigarette about every 3 hours and this is how she is trying to cut down. She gets migraines with auras but they have not been too bad she is requesting refill on Motrin which she takes for her menstrual cramps she says the cramps are bad but she would rather put up the cramps then have a bloating because that is worse for her she has the cramps pretty bad with a period because of having a LEEP many years ago. She says she had a mammogram done this spring system searched it was in September of 2023 she is requesting an MRI to check on her breast implants and I recommend that she speak with her primary care provider about that as I do not know the right test to do to check on aging breast implants she says they have been in for [address] them [address] at the [facility] and she was told to have been checked in 10 years. She also was requesting LFTs and for this I recommend she speak with the primary as well she did request blood work for STI screening but declines it hep C testing because she always has a false-positive but she does not have a positive viral load so she does not want that test done. 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 [facility] Medical History History of hepatitis C Smoker Potential exposure to STD Microscopic hematuria History of abnormal cervical Pap smear Hx of migraine headaches Asthma Breast lump Surgical History H/O breast augmentation History of loop electrical excision procedure (LEEP) Family History Paternal Aunt Ovarian cancer Cervical cancer Father Esophageal cancer Sister History of breast cancer, Onset Age: 40 Social History Household Members: Children Housing: Apartment Alcohol intake: current Alcohol intake frequency: holidays/special occasions only Patient Tobacco Use Status: Current everyday Tobacco user Cigarettes Per Day: 4 Years Smoked: 15 Current occupational status: employed 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 Sexual orientation: Straight/Heterosexual Gender identity: Female Female Reproductive History Menstrual Age of Menarche: 17 Duration of menses: 3-5 days Date of last menstrual period: 01/22/24 control method: pills Date of last pap smear: 12/08/21 (negative,2020 negative) History of abnormal pap smear: Yes (2019 BRIAN I) Physical Exam Vital Signs: Last Vital Signs BP 100/60 01/30/24 15:01 BMI result Body Mass Index 26.0 Const General: healthy appearing, comfortable, no acute distress, well developed and alert Nutritional Appearance: average body habitus Orientation/consciousness: patient oriented x3 Limitations: no limitations HEENT Head: Yes normocephalic Neck Neck: Yes normal visual inspection Chest Other: Patient has implants and nipple piercings. Chest palpation & inspection: normal inspection of the chest Breast/axilla inspection: normal inspection of the breasts and normal inspection of the axillae Breast/axilla palpation: normal palpation of the breasts and normal palpation of the axillae Resp Effort & Inspection: normal respiratory effort GI Inspection: Yes normal to inspection, No Abdominal wall edema and No distended Palpation (GI): Soft to palpation and nontender Other: External no lesions vagina pink moist healthy appearing clear mucus scant cervix multiparous and has the nondalton appearance of a LEEP surgery no abnormality seen patient shown her LEEP cervix with mirror reviewed the plan for follow-up as is in the chart her next Pap is planned at this point for 2026 as she has had many normals after her LEEP. Cervix long close thick mobile nontender uterus small mobile nontender good tone with Kegel. General: Yes bladder normal to palpation External Female Exam: normal external appearance and normal appearance of the urethra Speculum Exam - Vagina: normal appearance of the vagina, normal palpation and normal vaginal discharge Speculum Exam - Cervix: normal appearance of the cervix, normal palpation and nontender Bimanual exam- vagina & uterus: normal bimanual exam, normal palpation, uterine size normal, bladder normal to palpation, consistency normal, normal palpation, uterine mobility normal, uterine shape normal, No Cervical tenderness present, non-tender and no cervical motion tenderness Bimanual Exam- Adnexa, other: normal adnexae, no masses, normal and No adnexal tenderness Neuro General: patient oriented x3 Results Reviewed Results Reviewed: Name: Martha Feliciano Age/Sex: 41/F Attending: Estee Patel CNM : 1980 Submitted by: Estee Patel CNM Copies to: MR #: [id number] Status: DEP REF Collected: 12/07/21 Location: .LAB Received: 12/08/21 Interpretation Satisfactory for evaluation. Hyperkeratosis noted. Negative for intraepithelial lesion or malignancy. HPV mRNA E6/E7: NOT DETECTED This assay detects E6/E7 viral messenger RNA (mRNA) from 14 high-risk HPV types (16, 18, 31, 33, 35, 39, 45, 51, 52, 56, 58, 59, 66, 68) HPV testing performed by [facility], [place], [place]. See reference laboratory pion of the EMR for entire report. Clinical Information LMP: 11/29/21 Previous PAP test: 12/08/20, Abnormal Material Received ThinPrep-Cervical Electronically Signed By: GODWIN Skinner ([facility]) 12/16/21 0909 The Pap Test is a screening procedure with the inherent possibility of both false negative and false positive results. Results should be interpreted in the context of historic and current clinical findings. Reliability of the Pap Test is enhanced by performing the test on a regular repetitive basis. Patient: Martha Feliciano Age/Sex: 41/F MR#: [id number] Page 1 of 1 Name: Martha Feliciano Age/Sex: 40/F Attending: Estee Patel CNM : 1980 Submitted by: Estee Patel CNM Copies to: MR #: [id number] Status: DEP REF Collected: 12/05/20 Location: .LAB Received: 12/08/20 Interpretation Satisfactory for evaluation. Hyperkeratosis noted. Negative for intraepithelial lesion or malignancy. HPV mRNA E6/E7: NOT DETECTED This assay detects E6/E7 viral messenger RNA (mRNA) from 14 high-risk HPV types (16, 18, 31, 33, 35, 39, 45, 51, 52, 56, 58, 59, 66, 68) HPV testing performed by [facility], [place], [place]. See reference laboratory portion of the EMR for entire report. Clinical Information LMP: 11/18/20 Previous PAP test: Unknown Date, abnormal Other history: Abnormal cervical pap smear Material Received ThinPrep Cervical Electronically Signed By: GODWIN Skinner ([facility]) 12/10/20 0901 The Pap Test is a screening procedure with the inherent possibility of both false negative and false positive results. Results should be interpreted in the context of historic and current clinical findings. Reliability of the Pap Test is enhanced by performing the test on a regular repetitive basis. Patient: Martha Feliciano Age/Sex: 40/F MR#: [id number] Page 1 of 1 [facility] [address] [place] [address] Mammography Report Signed Patient: Martha Feliciano MR#: [id number] : 1980 Acct:[id number] Age/Sex: 43 / F ADM Date: 09/09/23 Loc: [facility] Attending Dr: Estee Patel CNM Ordering Physician: Estee Patel CNM Results: 2Benign Findings Date of Service: 09/09/23 Follow Up: 1 Year From Original Mammogram Procedure(s): MM tomosynthesis screen imp BI Accession Number(s): [id number] cc: Laurel Worrell MD; Estee Patel CNM~ EXAMINATION: MM SCREENING DIGITAL BREAST TOMOSYNTHESIS, BILATERAL CLINICAL INFORMATION: Screening. Asymptomatic. COMPARISON: Mammography: This study is compared with prior mammograms dating back to 2019. TECHNIQUE: Digital mammography is performed in craniocaudal and mediolateral oblique views along with computer-aided detection (CAD). Digital breast tomosynthesis is performed in implant-displaced craniocaudal and implant-displaced mediolateral oblique views along with computer-aided detection (CAD). Synthesized 2D images are generated from the tomosynthesis. FINDINGS: The breasts are heterogeneously dense, which may obscure small masses (ACR BI-RADS breast composition Category c). The patient has bilateral nipple rings. There are bilateral, retropectoral, mammographically intact silicone breast implants. There are tissue markers in each breast from prior benign percutaneous biopsies. There are a few, benign calcifications in each breast. There are no significant masses, abnormal calcifications, or other abnormalities. MM/MM tomosynthesis screen imp BI IMPRESSION: There are no significant changes from prior study. ASSESSMENT: BI-RADS BI-RADS 2 - Benign Findings RECOMMENDATION: Routine annual mammography screening. 1 year F/U This patient's information was entered into a reminder system with a target due date for their next mammogram. Dictated By: Lissy Kim MD Signed By: <Electronically signed by Lissy Kim MD in OV> 10/10/23 0711 DD/ 1037 Assessment & Plan Assessment & Plan (1) History of abnormal cervical Pap smear: Comment: BRIAN I 2018, Pap n/n 2019, 2020, 2021. Repeat 2026. vag ASCUS-2019 Code(s): Z87.42 - Personal history of other diseases of the female genital tract Category: Medical (2) Potential exposure to STD: Code(s): Z20.2 - Contact with and (suspected) exposure to infections with a predominantly sexual mode of transmission Category: Medical (3) History of loop electrical excision procedure (LEEP): Comment: 2004 Code(s): Z98.890 - Other specified postprocedural states Category: Surgical (4) H/O breast augmentation: Code(s): Z98.82 - Breast implant status Category: Surgical (5) Hx of migraine headaches: Code(s): Z86.69 - Personal history of other diseases of the nervous system and sense organs Category: Medical (6) Smoker: Comment: Discussed cutting back and quitting, she says she is trying Code(s): F17.200 - Nicotine dependence, unspecified, uncomplicated Category: Social Hx (7) Counseling for control, oral contraceptives: Comment: Reviewed her rationale for how she takes the pills at some length full consensus not met however she is adamant about the way she is taking them and it appears that she is at most missing 4-5 days a month of active pills during which she has a withdrawal bleed so while the explanation may not make sense, at least she is not actually risk in ovulation by missing active pills midcycle. 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 She feels bloated and she does not like that. Reviewed with her calendar she is calling ovulation the time that the zeenat would tell her she would be ovulating if she were not on OCPs. Reviewed that if she is not missing pills during the cycle she would not be ovulating at all theoretically. She says she has been doing this for years and the longest she is off the pills in order to get her period is about 4 or 5 days. Discussed that this isn't making too much sense but so long as she is consistent with it and skipping the pills at the end of the pack as if they were placebo pills that that may work for her in order to have a withdrawal bleed AK a ?menses? Patient is a smoker she says she smokes a little bit of a cigarette about every 3 hours and this is how she is trying to cut down. She gets migraines with auras but they have not been too bad she is requesting refill on Motrin which she takes for her menstrual cramps she says the cramps are bad but she would rather put up the cramps then have a bloating because that is worse for her she has the cramps pretty bad with a period because of having a LEEP many years ago. She says she had a mammogram done this spring system searched it was in September of 2023 she is requesting an MRI to check on her breast implants and I recommend that she speak with her primary care provider about that as I do not know the right test to do to check on aging breast implants she says they have been in for 10 years [address] had them place at the [facility] and she was told to have been checked in 10 years. She also was requesting LFTs and for this I recommend she speak with the primary as well she did request blood work for STI screening but declines it hep C testing because she always has a false-positive but she does not have a positive viral load so she does not want that test done. 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 Orders: Orders CT NG by PCR Today N89.8 - Other specified noninflammatory disorders of vagina, Z20.2 - Contact with and (suspected) exposure to infections with a predominantly sexual mode of transmission Hepatitis B Surface Antigen Today F17.200 - Nicotine dependence, unspecified, uncomplicated, Z20.2 - Contact with and (suspected) exposure to infections with a predominantly sexual mode of transmission, Z30.09 - Encounter for other general counseling and advice on contraception, Z86.69 - Personal history of other diseases of the nervous system and sense organs, Z87.42 - Personal history of other diseases of the female genital tract, Z98.82 - Breast implant status, Z98.890 - Other specified postprocedural states HIV Ab/Ag Today F17.200 - Nicotine dependence, unspecified, uncomplicated, Z20.2 - Contact with and (suspected) exposure to infections with a predominantly sexual mode of transmission, Z30.09 - Encounter for other general counseling and advice on contraception, Z86.69 - Personal history of other diseases of the nervous system and sense organs, Z87.42 - Personal history of other diseases of the female genital tract, Z98.82 - Breast implant status, Z98.890 - Other specified postprocedural states Bacterial Vaginosis Panel Today N89.8 - Other specified noninflammatory disorders of vagina Syphilis Screen Today F17.200 - Nicotine dependence, unspecified, uncomplicated, Z20.2 - Contact with and (suspected) exposure to infections with a predominantly sexual mode of transmission, Z30.09 - Encounter for other general counseling and advice on contraception, Z86.69 - Personal history of other diseases of the nervous system and sense organs, Z87.42 - Personal history of other diseases of the female genital tract, Z98.82 - Breast implant status, Z98.890 - Other specified postprocedural states Medications: New ibuprofen 600 mg PO Q6H 100 tabs 0RF Refilled norethindrone (contraceptive) (Aarti) 0.35 mg PO DAILY 84 tabs 4RF Coding Level of Care Code Est Pt Prev Care 40-64y(08339) Diagnoses History of abnormal cervical Pap smear Z87.42 Potential exposure to STD Z20.2 History of loop electrical excision procedure (LEEP) Z98.890 H/O breast augmentation Z98.82 Hx of migraine headaches Z86.69 Smoker F17.200 Counseling for control, oral contraceptives Z30.09
== END 2024-01-30 15:54 | disposition home or self-care (01) ==
PROVIDERS: PCP Internal Medicine; Visit Provider Advanced Practice Midwife
DX: Z01.419 Encounter for gynecological examination (general) (routine) without abnormal findings (principal); Z20.2 Contact with and (suspected) exposure to infections with a predominantly sexual mode of transmission; Z98.82 Breast implant status; F17.200 Nicotine dependence, unspecified, uncomplicated; Z30.09 Encounter for other general counseling and advice on contraception
CPT/HCPCS: 99396

== ENCOUNTER 2024-01-30 15:52 | Outpatient (REF) | payer OTHER, SELFPAY ==
[2024-01-31 08:13] LABS: HBsAGNum1 0.36 S/CO (0.00-0.99); HIV AB/AG Nonreactive (Nonreactive); HIV Num 1 0.04 S/CO (0.00-0.99); Hepatitis B Surface Antigen Negative (Negative)
[2024-01-31 08:34] LABS: Syphilis Screen Nonreactive (Nonreactive)
== END 2024-01-30 15:53 | disposition home or self-care (01) ==
LOC: HO.HHCL 15:52
PROVIDERS: Visit Provider Advanced Practice Midwife
DX: N89.8 Other specified noninflammatory disorders of vagina (principal); F17.200 Nicotine dependence, unspecified, uncomplicated; Z20.2 Contact with and (suspected) exposure to infections with a predominantly sexual mode of transmission; Z87.42 Personal history of other diseases of the female genital tract; Z30.09 Encounter for other general counseling and advice on contraception; Z86.69 Personal history of other diseases of the nervous system and sense organs; Z98.890 Other specified postprocedural states; Z98.82 Breast implant status
CPT/HCPCS: 36415; 86780; 87340; 87389

== ENCOUNTER 2024-08-15 12:15 | Outpatient (REF) | payer OTHER, SELFPAY ==
[2024-08-15 14:09] LABS: Syphilis Screen Nonreactive (Nonreactive)
--- OUTSIDE RECORDS SUMMARY | 2024-08-15 14:16 | XMS_ITS | Clinical Summary ---
Author Organization [employer] Address [address] [facility] [address] [place] [address] Care Team Providers Care Power System Engineer Name Role Phone Unavailable Primary Care Provider Unavailabl e Social History Tobacco Use Types Packs/Day Years Used Date Smoking Tobacco: Never Assessed Comments Unknown Sex and Gender Information Value Date Recorded Sex Assigned at Female 03/08/2022 10:14 AM EDT Legal Sex Female 10:14 AM EDT Gender Identity Not on file Sexual Orientation Not on file Plan of Treatment Health Maintenance Due Date Last Done Comments Depression Screening 1982 Alcohol/Substance Use Screening 1994 Tobacco Screening 1994 Family Planning (PISQ) 1997 DTaP/Tdap/Td Vaccines (1 - Tdap) 2001 Hepatitis B Vaccines (1 of 3 - 19+ 3-dose series) 2001 Pap Smear 2003 Cervical Cancer Screening 2012 HPV/Cotest 2012 Mammogram 2022 COVID-19 Vaccine (1 - 2023-2 5 season) 2024 Influenza Vaccine (#1) 2024 Zoster Vaccines (1 of 2) 2032 RSV Patients and Pa tients Aged 60 years or older (1 - 1-dose 75+ series) 2057 HIB Vaccines Aged Out No longer eligi ble based on patient's age to complete this topic HPV Vaccines Aged Out No longer eligi ble based on patient's age to complete this topic Hepatitis A Vaccines Aged Out No long er eligible based on patient's age to complete this topic IPV Vaccines Aged Out No longer eligi ble based on patient's age to complete this topic Meningococcal Vaccine Aged Out No carroll madeleine eligible based on patient's age to complete this topic Pneumococcal Vaccine: Pediat rics (0 to 5 Years) and At-Risk Patients (6 to 49) Years) Aged Out No longer eligible b ased on patient's age to complete this topic RSV under 20 months Aged Out No longe r eligible based on patient's age to complete this topic Rotavirus Vaccines Aged Out No longer eligible based on patient's age to complete this topic
--- OUTSIDE RECORDS SUMMARY | 2024-08-15 14:16 | XMS_ITS | Encounter Summary ---
Author Organization [employer] Address [address] [facility] [address] [place] [address] Care Team Providers Care Museum Service Scheduler Name Role Phone Unavailable Primary Care Provider Unavailabl e Encounter Details Date Type Department Care Team (Latest Contact Info) Description 11/10/2018 Abstract [facility] CONVERSIONS Dental, Provider, DDS Social History Tobacco Use Types Packs/Day Years Used Date Smoking Tobacco: Never Assessed Comments Unknown Sex and Gender Information Value Date Recorded Sex Assigned at Female 03/08/2022 10:14 AM EDT Legal Sex Female 10:14 AM EDT Gender Identity Not on file Sexual Orientation Not on file documented as of this encounter Plan of Treatment Not on file documented as of this encounter Visit Diagnoses Not on filedocumented in this encounter
[2024-08-15 16:07] LABS: CT PCR NOT DETECTED (Not Detect.); NG PCR NOT DETECTED (Not Detect.)
[2024-08-17 18:10] LABS: HIV 1 Antibody NEGATIVE (NEGATIVE); HIV 2 Antibody NEGATIVE (NEGATIVE)
[2024-08-18 10:10] LABS: TS Negative Control Passed; TS Panel A 0; TS Panel B 0; TS Positive Control Passed; TSpotTB Negative (Negative)
[2024-08-23 19:48] LABS: HIV-1 RNA TMA Qualitative Not Detected (Not Detected)
== END 2024-08-15 12:16 | disposition home or self-care (01) ==
LOC: HO.LAB 12:15
PROVIDERS: PCP Internal Medicine; Visit Provider Internal Medicine
DX: R30.0 Dysuria (principal); Z11.1 Encounter for screening for respiratory tuberculosis; Z11.3 Encounter for screening for infections with a predominantly sexual mode of transmission
CPT/HCPCS: 86481; 86701; 86702; 86780; 87086; 87491; 87591

== ENCOUNTER → 2024-08-28 10:37 | Outpatient (BNVA) | payer SELFPAY | PROVIDERS: PCP Internal Medicine | DX: Z02.89 Encounter for other administrative examinations (principal) ==

== ENCOUNTER 2024-09-17 10:52 | Outpatient (REF) | payer OTHER, SELFPAY ==
--- OUTSIDE RECORDS SUMMARY | 2024-09-17 11:39 | XMS_ITS | Encounter Summary ---
Author Organization [employer] Address [address] [facility] [address] [place] [address] Care Team Providers Care Annealer Helper Name Role Phone Unavailable Primary Care Provider Unavailabl e Encounter Details Date Type Department Care Team (Latest Contact Info) Description 11/10/2018 Abstract [facility] CONVERSIONS Dental, Provider, DDS Social History [...]
--- OUTSIDE RECORDS SUMMARY | 2024-09-17 11:39 | XMS_ITS | Clinical Summary ---
Author Organization [employer] Address [address] [facility] [address] [place] [address] Care Team Providers Care Dual Rate Supervisor Name Role Phone Unavailable Primary Care Provider [...] 2012 HPV/Cotest 2012 Mammogram 2022 COVID-19 Vaccine ( - 2023-2 5 season) 2024 Influenza Vaccine [...]
[2024-09-18 05:29] LABS: Rubella IgG Antibody 1.26 Index; Rubeola IgG (Measles) >300.00 AU/mL
[2024-09-18 08:11] LABS: HBS Num1 5.44 mIU/mL (0-7.99); ~Hepatitis B Surface Antibody NONREACTIVE (Nonreactive)
== END 2024-09-17 10:53 | disposition home or self-care (01) ==
LOC: HO.10HDL 10:52
PROVIDERS: Visit Provider Internal Medicine
DX: R21 Rash and other nonspecific skin eruption (principal); Z11.3 Encounter for screening for infections with a predominantly sexual mode of transmission; Z68.26 Body mass index [BMI] 26.0-26.9, adult
CPT/HCPCS: 36415; 86706; 86735; 86762; 86765; 86787